=== PATIENT | male | born 1985 | race African-American/Black ===

== ENCOUNTER 2017-05-23 12:54 | Emergency (ER) | payer SELFPAY ==
[2017-05-23 13:02] VITALS: BP 126/81
[2017-05-23] MEDS ORDERED: ONDANSETRON HCL INJ/PF 4 MG/2 ML SDV IV ONE (15:12)
[2017-05-23] MEDS ORDERED: RINGERS SOLUTION,LACTATED 1,000 ML IV PRN (15:12)
--- NOTE | 2017-05-23 15:13 | ER Document Report ---
ED Medical Screen (RME) - General Chief Complaint: Nausea/Vomiting/Diarrhea Stated Complaint: WEAKNESS Time Seen by Provider: 05/23/17 15:11 Mode of Arrival: Ambulatory Information source: Patient Notes: 31-year-old man presents to the emergency room with fever, chills, nausea vomiting for 2 days. TRAVEL OUTSIDE OF THE [place] IN LAST 30 DAYS: No - Related Data Allergies/Adverse Reactions: bee stings Allergy (Uncoded 09/05/12 03:39) Past Medical History - Social History Chew tobacco use (# tins/day): No Frequency of alcohol use: Occasional Drug Abuse: Marijuana Renal/ Medical History: Denies: Hx Peritoneal Dialysis - Immunizations Hx Diphtheria, Pertussis, Tetanus Vaccination: Yes Physical Exam - Vital signs Vitals: Temp Pulse Resp BP Pulse Ox 98.5 F 102 H 18 126/81 H 98 05/23/17 13:00 05/23/17 13:00 05/23/17 13:00 05/23/17 13:00 05/23/17 13:00 Course - Vital Signs Vital signs: Temp Pulse Resp BP Pulse Ox 98.5 F 102 H 18 126/81 H 98 05/23/17 13:00 05/23/17 13:00 05/23/17 13:00 05/23/17 13:00 05/23/17 13:00
[2017-05-23 16:01] LABS: HEMOGLOBIN 19.6 g/dL (13.5-17.0)
[2017-05-23] MEDS ORDERED: METOCLOPRAMIDE HCL INJ/PF 10 MG/2 ML SDV IV ONE (16:06)
[2017-05-23] MEDS ORDERED: KETOROLAC TROMETHAMINE INJ/PF 30 MG/1 ML SDV IV ONE (16:07)
[2017-05-23] MEDS ORDERED: NORMAL SALINE 1000 ML 1,000 ML IV ONE (16:07)
[2017-05-23 16:09] LABS: MEAN CORPUSCULAR HEMOGLOBIN 31.6 pg (27.0-33.4); MEAN CORPUSCULAR HGB CONC 34.7 g/dL (32.0-36.0); MEAN CORPUSCULAR VOLUME 91 fl (80-97); PLATELET COUNT 278 10^3/uL (150-450); RED BLOOD COUNT 6.21 10^6/uL (4.35-5.55); RED CELL DISTRIBUTION WIDTH 13.4 % (11.5-14.0); WHITE BLOOD COUNT 20.7 10^3/uL (4.0-10.5)
[2017-05-23 16:12] LABS: HEMATOCRIT 56.6 % (37.9-51.0)
[2017-05-23 16:18] LABS: ABSOLUTE LYMPHOCYTES# (MANUAL) 2.5 10^3/uL (0.5-4.7); ABSOLUTE MONOCYTES # (MANUAL) 0.8 10^3/uL (0.1-1.4); ABSOLUTE NEUTROPHILS# (MANUAL) 17.4 10^3/uL (1.7-8.2); BASOPHILS % (MANUAL) 0 % (0-2); EOSINOPHILS % (MANUAL) 0 % (0-6); LYMPHOCYTES % (MANUAL) 12 % (13-45); MONOCYTES % (MANUAL) 4 % (3-13); SEGMENTED NEUTROPHILS % (MAN) 84 % (42-78); TOTAL CELLS COUNTED 100
[2017-05-23 16:19] LABS: OVALOCYTES SLIGHT; POIKILOCYTOSIS SLIGHT; TOXIC VACUOLATION PRESENT
[2017-05-23 16:20] LABS: PLATELET COMMENT ADEQUATE; PLATELET LARGE PRESENT
[2017-05-23 17:07] LABS: A TYPE INFLUENZA AG NEGATIVE (NEGATIVE); B INFLUENZA AG NEGATIVE (NEGATIVE)
--- NOTE | 2017-05-23 17:56 | RADIOLOGY REPORT (SQ) ---
EXAM DESCRIPTION: ACUTE ABDOMEN SERIES COMPLETED DATE/TIME: 05/23/2017 5:48 pm REASON FOR STUDY: n/v/d leukocytosis COMPARISON: None. NUMBER OF VIEWS: Three views. TECHNIQUE: Frontal chest, supine abdomen and upright/decubitus abdomen radiographic images acquired. LIMITATIONS: None. FINDINGS: CHEST: Lungs clear of infiltrates. FREE AIR: None. No abnormal gas collections. BOWEL GAS PATTERN: Nonobstructive pattern. No dilated loops or air fluid levels. CALCIFICATIONS: No suspicious calcifications. HARDWARE: None in the abdomen. SOFT TISSUES: No gross mass or suggestion of organomegaly. BONES: No acute fracture. No worrisome bone lesions. OTHER: No other significant finding. IMPRESSION: NO RADIOGRAPHIC EVIDENCE FOR ACUTE ABDOMINAL DISEASE. TECHNICAL DOCUMENTATION: JOB ID: [id number] [employer]- All Rights Reserved
[2017-05-23 18:28] LABS: ALANINE AMINOTRANSFERASE 41 U/L (21-72); ALBUMIN 5.8 g/dL (3.5-5.0); ALKALINE PHOSPHATASE 93 U/L (38-126); ASPARTATE AMINO TRANSFERASE 50 U/L (17-59); BILIRUBIN,DIRECT 0.5 mg/dL (0.0-0.4); BLOOD UREA NITROGEN 54 mg/dL (7-20); CALCIUM 11.5 mg/dL (8.4-10.2); GLUCOSE 134 mg/dL (75-110); TOTAL PROTEIN 10.1 g/dL (6.3-8.2)
[2017-05-23] MEDS ORDERED: HYDROCODONE/ACETAMINOPHEN 5-325 MG (6 TAB/ER DISP) PO PRN (18:31)
[2017-05-23] MEDS ORDERED: ONDANSETRON ODT 4 MG TAB (6 TAB/ER DISP) PO PRN (18:31)
--- NOTE | 2017-05-23 18:31 | ER Document Report ---
ED GI/ - General Chief Complaint: Nausea/Vomiting/Diarrhea Stated Complaint: WEAKNESS Time Seen by Provider: 05/23/17 15:11 Mode of Arrival: Ambulatory Information source: Patient Notes: Patient is a 31-year-old male who presents to the ER today for 2 days of nausea , vomiting, diarrhea, abdominal cramping. Patient admits to hot flashes and chills but denies fever that he knows of. Patient denies any medical history, sick contacts. States he has been trying to drink water but dry heaving so much that he does not think he is getting anything down. He states that his abdomen hurts all over. TRAVEL OUTSIDE OF THE [place] IN LAST 30 DAYS: No - Related Data Allergies/Adverse Reactions: bee stings Allergy (Uncoded 09/05/12 03:39) Past Medical History - General Information source: Patient - Social History Smoking Status: Current Every Day Smoker Chew tobacco use (# tins/day): No Frequency of alcohol use: Occasional Drug Abuse: Marijuana Family History: Reviewed & Not Pertinent Patient has suicidal ideation: No Patient has homicidal ideation: No Renal/ Medical History: Denies: Hx Peritoneal Dialysis - Immunizations Hx Diphtheria, Pertussis, Tetanus Vaccination: Yes Review of Systems - Review of Systems Constitutional: See HPI EENT: No symptoms reported Cardiovascular: No symptoms reported Respiratory: No symptoms reported Gastrointestinal: See HPI Genitourinary: No symptoms reported Male Genitourinary: No symptoms reported Musculoskeletal: No symptoms reported Skin: No symptoms reported Hematologic/Lymphatic: No symptoms reported Neurological/Psychological: No symptoms reported Physical Exam - Vital signs Vitals: Temp Pulse Resp BP Pulse Ox 98.5 F 102 H 18 126/81 H 98 05/23/17 13:00 05/23/17 13:00 05/23/17 13:00 05/23/17 13:00 05/23/17 13:00 - Notes Notes: PHYSICAL EXAMINATION: GENERAL: Mildly ill-appearing, but d in no acute distress. HEAD: Atraumatic, normocephalic. EYES: Pupils equal round and reactive to light, extraocular movements intact, sclera anicteric, conjunctiva are normal. ENT airway patent NECK: Normal range of motion, supple without lymphadenopathy LUNGS: CTAB and equal. No wheezes rales or rhonchi. HEART: Regular rate and rhythm without murmurs ABDOMEN: Soft, mild diffuse tenderness. No guarding, no rebound BACK: no vertebral tenderness, normal ROM GI/: no CVA tenderness EXTREMITIES: Normal range of motion, no pitting edema. No cyanosis. NEUROLOGICAL: Cranial nerves grossly intact. Normal sensory/motor exams. PSYCH: Normal mood, normal affect. SKIN: Warm, Dry, normal turgor, no rashes or lesions noted Course - Re-evaluation Re-evalutation: 05/23/17 18:29 Patient has an elevated white blood cell count of 20.7, however acute abdominal series negative for any acute pathology and other lab work unremarkable today. Patient feels a lot better after IV fluids, Zofran, Reglan given here in the emergency department. I will send patient home with nausea medication and advised plenty of rest and fluids. Patient was dehydrated on arrival here. - Vital Signs Vital signs: Temp Pulse Resp BP Pulse Ox 98.5 F 102 H 16 126/81 H 98 05/23/17 13:00 05/23/17 13:00 05/23/17 15:45 05/23/17 13:00 05/23/17 13:00 - Laboratory Result Diagrams: 05/23/17 15:25 05/23/17 15:25 Laboratory results interpreted by me: 05/23/17 15:25 WBC 20.7 H RBC 6.21 H Hgb 19.6 H Hct 56.6 H Seg Neuts % (Manual) 84 H Lymphocytes % (Manual) 12 L Abs Neuts (Manual) 17.4 H Discharge - Discharge Clinical Impression: Nausea vomiting and diarrhea, Abdominal cramping Condition: Stable Disposition: HOME, SELF-CARE Additional Instructions: Return immediately for any new or worsening symptoms. Follow up with primary care provider, call tomorrow to make followup appointment. Drink plenty of fluids and get rest. Prescriptions: Ondansetron [Zofran Odt 4 mg Tablet] 1 - 2 tab PO Q4H PRN #30 tab.rapdis PRN Reason: For Nausea/Vomiting Forms: Return to Work
[2017-05-23 18:50] LABS: ANION GAP 22 (5-19); CARBON DIOXIDE 29 mmol/L (22-30); CHLORIDE 90 mmol/L (98-107); POTASSIUM 3.4 mmol/L (3.6-5.0)
[2017-05-23 18:51] LABS: SODIUM 141.1 mmol/L (137-145)
== END 2017-05-23 19:30 | disposition home or self-care (01) ==
LOC: ER 12:54
DX: R11.2 Nausea with vomiting, unspecified (principal); R19.7 Diarrhea, unspecified; R10.9 Unspecified abdominal pain; R53.1 Weakness; F17.200 Nicotine dependence, unspecified, uncomplicated
CPT/HCPCS: 99284; 96361; 96374; 96375; 36415; 85025; 80053; 87804; 74022; J1885; J2765; J2405; J7030

== ENCOUNTER 2020-03-29 00:32 | Emergency (ER) | payer OTHER, BC ==
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
[2020-03-29 11:52] VITALS: BP 124/79
== END 2020-03-29 11:51 | disposition home or self-care (01) ==
LOC: ER 00:32
DX: F10.10 Alcohol abuse, uncomplicated (principal); R47.81 Slurred speech; V89.2XXA Person injured in unspecified motor-vehicle accident, traffic, initial encounter; F17.200 Nicotine dependence, unspecified, uncomplicated
CPT/HCPCS: 70450; 72125; 99284